=== PATIENT | male | born 1990 | race African-American/Black ===

== ENCOUNTER 2016-07-18 15:09 | Emergency (ER) | payer SELFPAY ==
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
[2016-07-18 16:39] LABS: APPEARANCE,URINE CLEAR; BILIRUBIN,URINE NEGATIVE (NEGATIVE); GLUCOSE, URINE NEGATIVE (NEGATIVE); KETONES,URINE NEGATIVE (NEGATIVE); LEUKOCYTE ESTERASE,URINE NEGATIVE (NEGATIVE); NITRITE,URINE NEGATIVE (NEGATIVE); PROTEIN,URINE 30 mg/dL (NEGATIVE); URINE SPECIFIC GRAVITY 1.025; UROBILINOGEN,URINE NEGATIVE mg/dL (<2.0)
[2016-07-18 16:39] LABS: ABSOLUTE BASOPHILS # (AUTO) 0.1 10^3/uL (0.0-0.2); ABSOLUTE LYMPHOCYTES (AUTO) 1.7 10^3/uL (0.5-4.7); ABSOLUTE MONOCYTES (AUTO) 0.4 10^3/uL (0.1-1.4); ABSOLUTE NEUT (AUTO) 6.3 10^3/uL (1.7-8.2); BASOPHILS % (AUTO) 0.6 % (0-2); EOSINOPHILS % (AUTO) 0.4 % (0-6); HEMATOCRIT 43.5 % (37.9-51.0); HEMOGLOBIN 14.8 g/dL (13.5-17.0); HGB HCT DIFFERENCE 0.9; LYMPHOCYTES % (AUTO) 19.5 % (13-45); MEAN CORPUSCULAR HEMOGLOBIN 28.2 pg (27.0-33.4); MEAN CORPUSCULAR VOLUME 83 fl (80-97); RED BLOOD COUNT 5.25 10^6/uL (4.35-5.55); RED CELL DISTRIBUTION WIDTH 13.5 % (11.5-14.0); SEGMENTED NEUTROPHILS % (AUTO) 74.5 % (42-78); WHITE BLOOD COUNT 8.5 10^3/uL (4.0-10.5)
[2016-07-18 16:46] LABS: URINE BARBITURATES SCREEN NEGATIVE; URINE METHADONE SCREEN NEGATIVE; URINE OPIATES LOW NEGATIVE; URINE PHENCYCLIDINE SCREEN NEGATIVE
[2016-07-18 16:46] LABS: ALANINE AMINOTRANSFERASE 31 U/L (21-72); ALBUMIN 4.5 g/dL (3.5-5.0); ALKALINE PHOSPHATASE 60 U/L (38-126); ANION GAP 14 (5-19); ASPARTATE AMINO TRANSFERASE 23 U/L (17-59); BILIRUBIN,DIRECT 0.3 mg/dL (0.0-0.4); BILIRUBIN,TOTAL 0.8 mg/dL (0.2-1.3); BLOOD UREA NITROGEN 12 mg/dL (7-20); CALCIUM 9.8 mg/dL (8.4-10.2); CARBON DIOXIDE 26 mmol/L (22-30); CHLORIDE 102 mmol/L (98-107); CREATININE RESULT 1.02 mg/dL (0.52-1.25); GLUCOSE 88 mg/dL (75-110); POTASSIUM 3.9 mmol/L (3.6-5.0); SODIUM 141.5 mmol/L (137-145); TOTAL PROTEIN 8.3 g/dL (6.3-8.2)
[2016-07-18 16:47] LABS: ALCOHOL < 10 mg/dL (NONE DETECTED)
[2016-07-18] MEDS ORDERED: ACETAMINOPHEN 325 MG TABLET PO ONE (20:26)
[2016-07-18] MEDS ORDERED: HYDROXYZINE PAMOATE 50 MG CAPSULE PO PRN (20:52)
[2016-07-18] MEDS: OLANZAPINE 2.5 MG TABLET PO SCH (21:45)
[2016-07-18] MEDS ORDERED: CLONIDINE HCL 0.1 MG TABLET PO SCH (22:00)
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
--- NOTE | 2016-07-19 10:42 | ER Document Report ---
Doctor's Note Notes: 07/19/16 10:42 As the rounding physician for our psychiatric patients, I have reviewed the chart, vitals, lab work. Patient has been examined and noted to be stable at this time. He is calm and cooperative, denies SI/HI. . I am awaiting mental health in put regarding disposition.
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
[2016-07-19] MEDS: OLANZAPINE 2.5 MG TABLET PO SCH (18:09)
[2016-07-20] MEDS: OLANZAPINE 2.5 MG TABLET PO SCH (09:54)
--- NOTE | 2016-07-20 11:46 | ER Document Report ---
Doctor's Note Notes: 07/20/16 11:45 Rounds: Patient evaluated and chart reviewed. Patient says he is feeling better. Seems to be able to carry on a conversation without difficulty. Vital signs are all normal. Lab studies have been normal. Patient appears to be medically stable for transfer or discharge. Maki Jo MD
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
[2016-07-20 15:08] VITALS: BP 127/77
--- NOTE | 2016-07-21 09:44 | EKG REPORT ---
SEVERITY:- BORDERLINE ECG - SINUS RHYTHM PROBABLE LEFT ATRIAL ABNORMALITY : Confirmed by: Raymond Payan 21-Jul-2016 09:43:38
== END 2016-07-20 16:55 | disposition home or self-care (01) ==
LOC: EDBD → ER 15:09
DX: F33.1 Major depressive disorder, recurrent, moderate (principal); X83.8XXA Intentional self-harm by other specified means, initial encounter
CPT/HCPCS: 93005; 99285; 36415; 80307 ×4; 84443; 85025; 80053; 81001; 70450; 93010; J3490 ×3